=== PATIENT | male | born 1970 | race Caucasian/White ===

== ENCOUNTER → 2016-06-29 | Outpatient (CLI) | payer OTHER | LOC: SLEEP 21:30 | DX: G47.33 Obstructive sleep apnea (adult) (pediatric) (principal); J41.0 Simple chronic bronchitis; E66.9 Obesity, unspecified | CPT/HCPCS: 95810 ==

== ENCOUNTER → 2020-12-09 | Outpatient (CLI) | payer OTHER ==
[~2020-12-09] MED LIST: AUGMENTIN 875-1 EACH PO
== END ==
LOC: RAD 11:41
DX: M25.512 Pain in left shoulder (principal); R07.81 Pleurodynia
CPT/HCPCS: 71111; 73030